=== PATIENT | female | born 1935 | race Caucasian/White ===

== ENCOUNTER 2024-01-12 18:55 | Inpatient (IN) | payer MEDICARE, MEDICAID ==
[~2024-01-12] VITALS: Ht 162.6 cm; Wt 52.6 kg
[~2024-01-12 18:55] MED LIST: BISA10SU11 PR; CARV3 PO; CLOT15CR5 TP; CYAN250T3 PO; FURO40TA5 PO; IPRA3AMP24 NEB; MAGN-169 PO; MIDO5TAB5 PO; MULT-1303 PO; POLY15DR16 OU; RIFAX550 PO; SPIR100T5 PO
[2024-01-12 19:57] LABS: BASOPHILS % (AUTO) 0.5 % (0.0-2.0); EOSINOPHILS % (AUTO) 2.1 % (1.0-6.0); HEMATOCRIT 42.2 % (36-46); HEMOGLOBIN 14.1 g/dL (12.0-16.0); LYMPHOCYTES # (AUTO) 1.1 K/uL (1.0-4.8); LYMPHOCYTES % (AUTO) 17.5 % (22.0-44.0); MEAN CORPUSCULAR HEMOGLOBIN 31.8 pg (26.0-34.0); MEAN CORPUSCULAR HGB CONC 33.5 G/dL (31.0-37.0); MEAN CORPUSCULAR VOLUME 95 fL (80-100); MONOCYTES # (AUTO) 0.8 K/uL (0.1-1.0); MONOCYTES % (AUTO) 13.2 % (2.0-9.0); NEUTROPHILS # (AUTO) 4.2 K/uL (1.8-7.7); NEUTROPHILS % (AUTO) 66.7 % (40.0-70.0); PLATELET COUNT (AUTO) 103 K/uL (150-450); RED BLOOD CELL COUNT(AUTO) 4.44 MIL/uL (4.00-5.20); RED CELL DISTRIBUTION WIDTH 21.3 % (11.5-14.5); WHITE BLOOD COUNT (AUTO) 6.3 K/uL (4.5-11.0)
[2024-01-12 20:04] LABS: ANION GAP 0 mmol/L (8-16); CARBON DIOXIDE 33 mmol/L (22-29); CHLORIDE 95 mmol/L (98-107); CREATININE 0.69 mg/dL (0.60-1.30); GLOMERULAR FILTR. RATE CALC > 60 mL/min (>60); GLUCOSE,RANDOM 93 mg/dL (70-110); SODIUM SERUM 128 mmol/L (136-145); UREA NITROGEN, BLOOD 15 mg/dL (7-18)
[2024-01-12 20:13] LABS: TROPONIN I-HIGH SENSITIVITY 5 ng/L (<51)
[2024-01-12 21:41] LABS: INFLUENZA A-RTPCR,COMBO NEGATIVE (NEGATIVE); INFLUENZA B-RTPCR,COMBO NEGATIVE (NEGATIVE); RESPIRATORY SYNCYTIAL VRS-PCR NEGATIVE (NEGATIVE); SARS COVID19 RTPCR, COMBO NEGATIVE (NEGATIVE)
[2024-01-12] MEDS ORDERED: 0.9% SODIUM CHLORIDE 10 ML SYRINGE IVP ONE (23:08)
[2024-01-12] MEDS ORDERED: IOHEXOL 350 MG/ML 100 ML VIAL ONE (23:08)
[2024-01-12] MEDS ORDERED: SODIUM CHLORIDE 0.9% 100 ML ONE (23:08)
[2024-01-13] MEDS: HEPARIN SODIUM,PORCINE 5,000 UNITS/ML VIAL SQ SCH (00:40)
[2024-01-13 04:00] VITALS: BP 121/68; PULSE 80; RESP 22; TEMP 97.6
[2024-01-13 08:00] VITALS: BP 120/53; PULSE 77; RESP 20; TEMP 98
[2024-01-13] MEDS: DOCUSATE SODIUM 100 MG CAPSULE PO SCH (08:38)
[2024-01-13 09:42] LABS: ANION GAP 6 mmol/L (8-16); CALCIUM, TOTAL 8.2 mg/dL (8.8-10.5); CARBON DIOXIDE 29 mmol/L (22-29); CHLORIDE 94 mmol/L (98-107); CREATININE 0.69 mg/dL (0.60-1.30); GLOMERULAR FILTR. RATE CALC > 60 mL/min (>60); GLUCOSE,RANDOM 70 mg/dL (70-110); POTASSIUM 3.9 mmol/L (3.5-5.1); SODIUM SERUM 129 mmol/L (136-145); UREA NITROGEN, BLOOD 14 mg/dL (7-18)
[2024-01-13 10:56] LABS: BASOPHILS % (AUTO) 0.8 % (0.0-2.0); EOSINOPHILS % (AUTO) 2.2 % (1.0-6.0); HEMATOCRIT 43.8 % (36-46); HEMOGLOBIN 14.5 g/dL (12.0-16.0); LYMPHOCYTES # (AUTO) 1.5 K/uL (1.0-4.8); LYMPHOCYTES % (AUTO) 24.2 % (22.0-44.0); MEAN CORPUSCULAR HGB CONC 33.1 G/dL (31.0-37.0); MEAN CORPUSCULAR VOLUME 97 fL (80-100); MONOCYTES # (AUTO) 0.7 K/uL (0.1-1.0); MONOCYTES % (AUTO) 11.8 % (2.0-9.0); NEUTROPHILS # (AUTO) 3.7 K/uL (1.8-7.7); PLATELET COUNT (AUTO) 103 K/uL (150-450); RED BLOOD CELL COUNT(AUTO) 4.54 MIL/uL (4.00-5.20); RED CELL DISTRIBUTION WIDTH 21.5 % (11.5-14.5); WHITE BLOOD COUNT (AUTO) 6.1 K/uL (4.5-11.0)
[2024-01-13 12:00] VITALS: BP 118/73; PULSE 78; RESP 18; TEMP 98.2
[2024-01-13] MEDS: *CLINICAL-CEFEPIME DOSING CLINICAL ONE (14:57)
[2024-01-13 15:30] VITALS: BP 121/66; PULSE 79; RESP 16; TEMP 97.4
[2024-01-13] MEDS: CEFEPIME HCL 2 GM in DEXTROSE 5%-WATER 50 ML IV SCH (16:00)
[2024-01-13] MEDS ORDERED: SODIUM CHLORIDE 0.9% 250 ML IV ONE (17:19)
[2024-01-13 20:37] VITALS: BP 102/62; PULSE 82; RESP 19; TEMP 97.7
[2024-01-14] VITALS (7 sets, daily range): BP systolic 109–134; BP diastolic 58–77; PULSE 68–82; RESP 16–18; TEMP 97.5–98.3
[2024-01-14 00:19] LABS: SODIUM,URINE RANDOM 7 mmol/l (20-110)
[2024-01-14 00:41] LABS: OSMOLALITY,URINE 792 mOsm/kg (50-1500)
[2024-01-14 07:00] LABS: BASOPHILS % (AUTO) 0.7 % (0.0-2.0); EOSINOPHILS % (AUTO) 4.1 % (1.0-6.0); HEMATOCRIT 39.3 % (36-46); HEMOGLOBIN 13.4 g/dL (12.0-16.0); LYMPHOCYTES # (AUTO) 0.9 K/uL (1.0-4.8); LYMPHOCYTES % (AUTO) 16.9 % (22.0-44.0); MEAN CORPUSCULAR HEMOGLOBIN 32.4 pg (26.0-34.0); MEAN CORPUSCULAR HGB CONC 34.1 G/dL (31.0-37.0); MEAN CORPUSCULAR VOLUME 95 fL (80-100); MONOCYTES # (AUTO) 0.7 K/uL (0.1-1.0); MONOCYTES % (AUTO) 13.5 % (2.0-9.0); NEUTROPHILS # (AUTO) 3.5 K/uL (1.8-7.7); NEUTROPHILS % (AUTO) 64.8 % (40.0-70.0); PLATELET COUNT (AUTO) 99 K/uL (150-450); RED BLOOD CELL COUNT(AUTO) 4.13 MIL/uL (4.00-5.20); RED CELL DISTRIBUTION WIDTH 21.1 % (11.5-14.5); WHITE BLOOD COUNT (AUTO) 5.5 K/uL (4.5-11.0)
[2024-01-14 07:01] LABS: ANION GAP 3 mmol/L (8-16); CALCIUM, TOTAL 7.9 mg/dL (8.8-10.5); CARBON DIOXIDE 30 mmol/L (22-29); CHLORIDE 95 mmol/L (98-107); CREATININE 0.71 mg/dL (0.60-1.30); GLOMERULAR FILTR. RATE CALC > 60 mL/min (>60); GLUCOSE,RANDOM 82 mg/dL (70-110); POTASSIUM 4.2 mmol/L (3.5-5.1); SODIUM SERUM 128 mmol/L (136-145); UREA NITROGEN, BLOOD 15 mg/dL (7-18)
[2024-01-15 04:14] VITALS: BP 136/73; PULSE 68; RESP 18; TEMP 97.8
[2024-01-15] MEDS ORDERED: MAGNESIUM HYDROXIDE SUSPENSION 30 ML UDCUP PO PRN (05:15)
[2024-01-15] MEDS ORDERED: BISACODYL 10 MG RECTAL RECTAL SUPPOSITORY PR PRN (05:15)
[2024-01-15] MEDS ORDERED: ALBUTEROL SULFATE 2.5 MG/0.5 ML NEB SOLUTION NEB PRN (05:30)
[2024-01-15] MEDS ORDERED: IPRATROPIUM BROMIDE 0.5 MG/2.5 ML NEB SOLUTION NEB PRN (05:45)
[2024-01-15 08:06] VITALS: BP 122/65; PULSE 64; RESP 18; TEMP 98
[2024-01-15] MEDS: SPIRONOLACTONE 50 MG TABLET PO SCH (09:00)
[2024-01-15] MEDS: PEG 400/HYPROMELLOSE/GLYCERIN 15 ML OPHTHALMIC SOLUTION OU SCH (09:08)
[2024-01-15] MEDS: FUROSEMIDE 40 MG TABLET PO SCH (09:08)
[2024-01-15] MEDS: MULTIVITAMINS WITH MINERALS, THERAPEUTIC TABLET PO SCH (09:08)
[2024-01-15] MEDS: CARVEDILOL 3.125 MG TABLET PO SCH (09:08)
[2024-01-15] MEDS: RIFAXIMIN 550 MG TABLET PO SCH (09:09)
[2024-01-15] MEDS: MIDODRINE HCL 5 MG TABLET PO SCH (09:11)
[2024-01-15] MEDS: CYANOCOBALAMIN 500 MCG TABLET PO SCH (09:11)
[2024-01-15 11:04] VITALS: BP 109/56; PULSE 71; RESP 18; TEMP 98
[2024-01-15 15:44] VITALS: BP 104/66; PULSE 93; RESP 18; TEMP 97.9
[2024-01-15] MEDS: ACETAMINOPHEN 325 MG TABLET PO PRN (16:42)
[2024-01-15 20:11] VITALS: BP 111/62; PULSE 69; RESP 18; TEMP 97.8
[2024-01-15 22:55] VITALS: BP 123/76; PULSE 78; RESP 18; TEMP 98.1
[2024-01-16 00:45] LABS: GLUCOMETER DEV NAME(LOC) 5N.1D; GLUCOSE,POINT OF CARE 269 MG/DL (70-110)
[2024-01-16 04:58] VITALS: BP 119/69; PULSE 68; RESP 18; TEMP 98
[2024-01-16 08:57] VITALS: BP 104/54; PULSE 63; RESP 19; TEMP 98.2
[2024-01-16] MEDS ORDERED: MAGNESIUM SULFATE 4 GM/WATER 100 ML IV PRN (09:45)
[2024-01-16] MEDS ORDERED: MAGNESIUM OXIDE 400 MG TABLET PO PRN (09:45)
[2024-01-16] MEDS ORDERED: POTASSIUM CHLORIDE 20 MEQ ER TABLET PO PRN (09:45)
[2024-01-16] MEDS ORDERED: POTASSIUM CHL 10 MEQ/WATER 50 ML IV PRN (09:45)
[2024-01-16] MEDS ORDERED: MAGNESIUM SULFATE 2 GM/WATER 50 ML IV PRN (09:45)
[2024-01-16 11:37] VITALS: BP 147/73; PULSE 60; RESP 19; TEMP 98
[2024-01-16 12:05] LABS: INR 1.2 (0.9-1.1); PROTHROMBIN TIME 12.1 SEC (9.4-11.6)
[2024-01-16 13:58] VITALS: BP 145/70; PULSE 66; RESP 17; TEMP 97.4
[2024-01-16 15:53] VITALS: BP 122/63; PULSE 71; RESP 17; TEMP 97.8
[2024-01-16 19:52] VITALS: BP 140/65; PULSE 77; RESP 18; TEMP 98
[2024-01-16] MEDS: HYDROCODONE/ACETAMINOPHEN 5-325 MG TABLET PO ONE (22:20)
[2024-01-17] MEDS: ONDANSETRON HCL 4 MG/2 ML VIAL IVP PRN (03:40)
[2024-01-17] MEDS: MORPHINE SULFATE 2 MG/ML SYRINGE IVP ONE (04:06)
[2024-01-17 04:39] VITALS: BP 102/64; PULSE 62; RESP 20; TEMP 98.5
[2024-01-17] MEDS ORDERED: ONDANSETRON HCL 4 MG/2 ML VIAL ONE (08:47)
[2024-01-17] MEDS: ONDANSETRON HCL 4 MG/2 ML VIAL IVP ONE (10:12)
[2024-01-17 10:56] LABS: SPECIMENTYPE,BODY FLUID THORACENTESIS
[2024-01-17 11:24] LABS: APPEARANCE,SPUN,BODY FLUID CLEAR (CLEAR); APPEARANCE,UNSPUN,BODY FLUID HAZY (CLEAR); COLOR,BODY FLUID YELLOW (LT YELLOW); TOTAL VOLUME,BODY FLUID 1230 mL
[2024-01-17 12:31] LABS: WBC, BODY FLUID 10 /cu. mm.
[2024-01-17 12:32] LABS: BASOPHILS,BODY FLUID 0 %; EOSINOPHILS,BF (ANAL) 0 %; LYMPHOCYTES,BODY FLUID 73 %; MONOCYTES,BODY FLUID 5 %; NEUTROPHILS,BODY FLUID 19 %; OTHER CELLS,BODY FLUID 3
[2024-01-17] MEDS ORDERED: LEVO-72 PO (15:03)
[2024-01-17 15:07] VITALS: BP 178/86; PULSE 63; RESP 16; TEMP 98.2
[2024-01-17 17:10] VITALS: BP 115/57; PULSE 57; RESP 16; TEMP 97.5
[2024-01-18 11:07] LABS: GLUCOSE, BODY FLUID,REF 137 mg/dL; LDH,BODY FLUID,REF 40 IU/L
== END 2024-01-17 19:35 | DRG 189 ==
LOC: EMS 18:55 → EDH 22:04 → 5S 01-13 03:07 → 4E 01-16 12:45 → UNDODISIN 01-16 12:50
PROVIDERS: ADMIT Internal Medicine; ATTEND Internal Medicine
PROC: 0W993ZZ Drainage of Right Pleural Cavity, Percutaneous Approach (ICD-10-PCS; principal; 2024-01-17)
DX: J96.01 Acute respiratory failure with hypoxia (principal); E43 Unspecified severe protein-calorie malnutrition; J18.9 Pneumonia, unspecified organism; G93.41 Metabolic encephalopathy; J91.8 Pleural effusion in other conditions classified elsewhere; J44.0 Chronic obstructive pulmonary disease with (acute) lower respiratory infection; E87.1 Hypo-osmolality and hyponatremia; Z68.1 Body mass index [BMI] 19.9 or less, adult; J98.11 Atelectasis; F03.90 Unspecified dementia, unspecified severity, without behavioral disturbance, psychotic disturbance, mood disturbance, and anxiety; Z20.822 Contact with and (suspected) exposure to COVID-19; K74.60 Unspecified cirrhosis of liver; Z66 Do not resuscitate; I71.43 Infrarenal abdominal aortic aneurysm, without rupture; Z85.05 Personal history of malignant neoplasm of liver
CPT/HCPCS: 0241U; 32555; 71045; 71260; 76942; 80048; 82040; 82945; 82962; 83615; 83735; 83880; 83930; 83935; 84300; 84484; 85025; 85610; 87015; 87075; 87081; 87101; 87205; 87206; 89051; 93005; 99285; G0378; J0692; J1644; J2270; J2405; J7050; J7060; 36415-L1; 36415-TC; 87070